=== PATIENT | male | born 1985 | race Caucasian/White ===

== ENCOUNTER 2023-04-20 08:38 | Emergency (ER) | payer OTHER ==
[~2023-04-20] VITALS: Ht 193 cm; Wt 176.9 kg
[2023-04-20 09:37] LABS: BASO % 0.5 % (0.0-1.0); EOS # 0.2 10*3/uL (0.0-0.4); EOS % 2.2 % (1.0-4.0); LYMPH # 2.8 10*3/uL (1.3-4.4); LYMPH % 33.9 % (27.0-41.0); MEAN CELL VOLUME 86.7 fl (80.0-94.0); MEAN CORPUSCULAR HGB 28.6 pg (27.0-31.0); MEAN PLATELET VOLUME 8.2 fl (9.6-12.3); MONO # 0.4 10*3/uL (0.1-1.0); MONO % 4.5 % (3.0-9.0); NEUT # 4.9 10*3/uL (2.3-7.9); NEUT % 58.5 % (47.0-73.0); PLATELET COUNT AUTOMATED 301 10*3/uL (130-400); RED BLOOD COUNT 5.42 10*6/uL (4.50-5.90); RED CELL DISTRI WIDTH 12.4 % (0-14.5); WHITE BLOOD COUNT 8.3 10*3/uL (4.8-10.8)
[2023-04-20 09:59] LABS: ALKALINE PHOSPHATASE 83 U/L (46-116); BUN 10 mg/dl (9-23); CHLORIDE 106 mmol/L (98-107); LIPASE 41 U/L (12-53); POTASSIUM 4.4 mmol/L (3.4-5.1); SGPT/ALT 36 U/L (5-49); TOTAL PROTEIN 7.2 gm/dL (6.0-8.0)
[2023-04-20] MEDS ORDERED: CYCLOBENZAPRINE10 MG PO (10:30)
[2023-04-20] MEDS ORDERED: PREDNISONE50 MG PO (10:30)
== END 2023-04-20 10:55 | disposition home or self-care (01) ==
LOC: ED 08:38
PROVIDERS: Emergency Medicine
DX: S16.1XXA Strain of muscle, fascia and tendon at neck level, initial encounter (principal); I10 Essential (primary) hypertension; R51.9 Headache, unspecified; R10.2 Pelvic and perineal pain; X58.XXXA Exposure to other specified factors, initial encounter; Y93.89 Activity, other specified; Y92.89 Other specified places as the place of occurrence of the external cause; Y99.8 Other external cause status

== ENCOUNTER 2023-04-20 19:50 | Emergency (ER) | payer OTHER ==
[~2023-04-20] VITALS: Ht 193 cm; Wt 176.9 kg
[~2023-04-20 19:50] MED LIST: CYCLOBENZAPRINE10 MG PO; PREDNISONE50 MG PO
== END 2023-04-20 22:58 | disposition home or self-care (01) ==
LOC: ED 19:50
DX: I10 Essential (primary) hypertension (principal); R51.9 Headache, unspecified